=== PATIENT | male | born 1965 | race Caucasian/White ===

== ENCOUNTER → 2024-01-21 10:45 | Outpatient (BNVA) | payer MEDICARE, SELFPAY | PROVIDERS: Visit Provider Nurse Practitioner Family | DX: K51.90 Ulcerative colitis, unspecified, without complications (principal); K92.1 Melena | CPT/HCPCS: 80048; 83993; 85025; 86021; 86036; 86671; 87040; 87338; 87425; 87493; G0328 ==

== ENCOUNTER → 2024-02-12 10:00 | Outpatient (BNVA) | payer MEDICARE, SELFPAY | PROVIDERS: PCP Nurse Practitioner; Visit Provider Student in an Organized Health Care Education/Training Program | DX: R19.7 Diarrhea, unspecified (principal) | CPT/HCPCS: 99203 ==